=== PATIENT | female | born 1970 | race Caucasian/White ===

== ENCOUNTER 2019-06-05 19:34 | Emergency (ER) | payer OTHER ==
[~2019-06-05] VITALS: Ht 175.3 cm; Wt 81.7 kg
[~2019-06-05 19:34] MED LIST: ADVIL100 M2; ALEVE220 M1 PO; LEXAPRO20 MG PO; NOHOMEMEDICATIONS; NORCO 5-325 TA1 EACH PO; VICODIN 5-5001 EACH PO; ZOFRAN 4 MG ORAL4 M1 DIS; ZOFRAN ODT4 MG PO
[2019-06-05 19:35] VITALS: BP 158/97
[2019-06-05] MEDS ORDERED: ELIMITE60 GM TOP (19:38)
== END 2019-06-05 19:55 | disposition home or self-care (01) ==
LOC: ER 19:34
DX: Z20.7 Contact with and (suspected) exposure to pediculosis, acariasis and other infestations (principal); R21 Rash and other nonspecific skin eruption